=== PATIENT | male | born 1990 | race African-American/Black ===

== ENCOUNTER 2017-10-07 04:47 | Emergency (ER) | payer SELFPAY ==
[~2017-10-07] VITALS: Ht 180.3 cm; Wt 65.0 kg
[2017-10-07] MEDS ORDERED: IBUPROFEN 600MG TABLET PO ONE (06:45)
[2017-10-07 07:25] VITALS: BP 125/76
== END 2017-10-07 07:37 | disposition left against medical advice (07) ==
LOC: ER 04:47
DX: S40.011A Contusion of right shoulder, initial encounter (principal); F17.200 Nicotine dependence, unspecified, uncomplicated; F12.10 Cannabis abuse, uncomplicated; V03.90XA Pedestrian on foot injured in collision with car, pick-up truck or van, unspecified whether traffic or nontraffic accident, initial encounter; Y93.01 Activity, walking, marching and hiking; Y92.89 Other specified places as the place of occurrence of the external cause; Y99.8 Other external cause status
CPT/HCPCS: 73030; 99284